=== PATIENT | male | born 1960 | race Caucasian/White ===

== ENCOUNTER → 2016-10-09 | Outpatient (CLI) | payer BC ==
--- NOTE | 2016-10-09 16:26 | XR ---
EXAMINATION TYPE: XR lumbosacral spine min 4V DATE OF EXAM: 10/09/2016 COMPARISON: NONE HISTORY: 56-year-old male severe low back pain with sciatica towards the right TECHNIQUE: 5 views FINDINGS: Atherosclerotic calcifications throughout the abdominal aorta and iliac arteries. There may be mild a neurysm of the abdominal aorta at 3.1 cm. Moderate to advanced disc/endplate degenerative change throughout the lumbar spine with a levoconvex scoliosis, altered level endplate spondylosis and disc vacuum, and hypertrophic facet arthropathy. Ov erall alignment is maintained. There is mild anterior wedging of T12 vertebral body of indeterminate age. No pars interarticularis defect seen. IMPRESSION: 1. Degenerated levoconvex scoliosis of the lumbar spine with moderate to advanced disc/endplate degen erative change and hypertrophic facet arthropathy throughout. 2. Mild anterior wedging of T12 compatible with a mild compression injury of indeterminate age. Clini natalia correlate. 3. Calcified abdominal aorta with possible mild AAA.
== END | disposition home or self-care (01) ==
LOC: RADXRYALE 16:02
PROVIDERS: ATTEND Physician Assistant Medical
DX: M47.816 Spondylosis without myelopathy or radiculopathy, lumbar region (principal); M48.54XA Collapsed vertebra, not elsewhere classified, thoracic region, initial encounter for fracture; M12.88 Other specific arthropathies, not elsewhere classified, other specified site; M41.86 Other forms of scoliosis, lumbar region
CPT/HCPCS: 72110

== ENCOUNTER 2016-10-28 06:55 | Emergency (ER) | payer BC ==
[2016-10-28] MEDS ORDERED: KETOROLAC 60 MG/2 ML VIAL IM STA (07:33)
[2016-10-28] MEDS ORDERED: HYDROcodone/APAP 5-325MG 1 EACH TAB PO STA (07:33)
[2016-10-28] MEDS ORDERED: DIAZEPAM 5 MG TAB PO STA (07:33)
--- NOTE | 2016-10-28 07:33 | ED ---
General Adult HPI - General Chief complaint: Neck Pain/Injury Stated complaint: Neck Pain Time Seen by Provider: 10/28/16 07:21 Source: patient, family, RN notes reviewed, old records reviewed Mode of arrival: ambulatory Limitations: no limitations - History of Present Illness Initial comments: This is a 56-year-old male to the ER for evaluation. This patient presents for evaluation regarding neck pain, severe neck pain. We'll go with the pain yesterday no trauma no injuries. No fevers, decreased range of motion. Patient does have history of back pain and back spasms chronic back pain. Muscle relaxers this morning with mild help - Related Data Home Medications Medication Instructions Recorded Confirmed Albuterol Inhaler [Ventolin 1 - 2 puff INHALATION RT-Q6H PRN 02/24/15 10/28/16 Inhaler] Cholecalciferol [Vitamin D3] 2,000 unit PO DAILY@1200 02/24/15 10/28/16 Fluticasone/Salmeterol [Advair 1 puff INHALATION RT-BID PRN 02/24/15 10/28/16 250-50 Diskus] Meloxicam 15 mg PO DAILY 02/24/15 10/28/16 Niacin [Niacin ER] 500 mg PO DAILY 02/24/15 10/28/16 Simvastatin [Zocor] 20 mg PO HS 02/24/15 10/28/16 amLODIPine [Norvasc] 10 mg PO DAILY 02/24/15 10/28/16 Aspirin 81 mg PO DAILY 10/21/16 10/28/16 Clopidogrel [Plavix] 75 mg PO DAILY 10/21/16 10/28/16 Cyclobenzaprine [Flexeril] 10 mg PO HS 10/21/16 10/28/16 traMADol HCL [Ultram] 50 mg PO TID PRN 10/21/16 10/28/16 Allergies Allergy/AdvReac Type Severity Reaction Status Date / Time No Known Allergies Allergy Verified 10/28/16 07:00 Review of Systems ROS Statement: Those systems with pertinent positive or pertinent negative responses have been documented in the HPI. ROS Other: All systems not noted in ROS Statement are negative. Past Medical History Past Medical History: Hyperlipidemia, Hypertension, Osteoarthritis (OA) Additional Past Medical History / Comment(s): hx. kidney stones, INGUINAL HERNIA History of Any Multi-Drug Resistant Organisms: None Reported Past Surgical History: Orthopedic Surgery Additional Past Surgical History / Comment(s): LT carotid endarterectomy, hydrocele repaired, LT shoulder surg., foot surg. REPAIR LT CLAVICLE FX Past Anesthesia/Blood Transfusion Reactions: No Reported Reaction Past Psychological History: No Psychological Hx Reported Smoking Status: Former smoker - Past Family History Mother Family Medical History: Cancer General Exam Limitations: no limitations General appearance: alert, in no apparent distress Head exam: Present: atraumatic, normocephalic, normal inspection Eye exam: Present: normal appearance, PERRL, EOMI. Absent: scleral icterus, conjunctival injection, periorbital swelling ENT exam: Present: normal exam, mucous membranes moist Neck exam: Present: normal inspection. Absent: tenderness, meningismus, lymphadenopathy Respiratory exam: Present: normal lung sounds bilaterally. Absent: respiratory distress, wheezes, rales, rhonchi, stridor Cardiovascular Exam: Present: regular rate, normal rhythm, normal heart sounds. Absent: systolic murmur, diastolic murmur, rubs, gallop, clicks GI/Abdominal exam: Present: soft, normal bowel sounds. Absent: distended, tenderness, guarding, rebound, rigid Extremities exam: Present: normal inspection, full ROM, normal capillary refill. Absent: tenderness, pedal edema, joint swelling, calf tenderness Back exam: Present: normal inspection Neurological exam: Present: alert, oriented X3, CN II-XII intact Psychiatric exam: Present: normal affect, normal mood Skin exam: Present: warm, dry, intact, normal color. Absent: rash Course Vital Signs 10/28/16 06:58 Temperature 97 F L Pulse Rate 61 Respiratory 18 Rate Blood Pressure 177/82 O2 Sat by Pulse 99 Oximetry - Reevaluation(s) Reevaluation #1: 10/28/16 07:38 Symptoms are much improved Medical Decision Making - Medical Decision Making Present [facility] ER for evaluation, neck pain, decreased range of motion. Patient's symptoms are improved, we'll discharge him Disposition Clinical Impression: Strain of neck muscle, Torticollis Disposition: HOME SELF-CARE Condition: Good Instructions: Cervical Sprain (ED) Referrals: Mauricio Dangelo DO [Primary Care Provider] - 1-2 days
[2016-10-28 08:01] VITALS: BP 157/86; PULSE 64; RESP 17; TEMP 97
== END 2016-10-28 08:01 | disposition home or self-care (01) ==
LOC: EC 06:55
DX: S16.1XXA Strain of muscle, fascia and tendon at neck level, initial encounter (principal); M43.6 Torticollis; E78.5 Hyperlipidemia, unspecified; I10 Essential (primary) hypertension; M19.90 Unspecified osteoarthritis, unspecified site; Z87.891 Personal history of nicotine dependence; Z79.01 Long term (current) use of anticoagulants; Z79.1 Long term (current) use of non-steroidal anti-inflammatories (NSAID); Z79.82 Long term (current) use of aspirin; Z79.899 Other long term (current) drug therapy; X58.XXXA Exposure to other specified factors, initial encounter
CPT/HCPCS: 99284; 96372; J1885

== ENCOUNTER 2016-10-28 11:43 | Day surgery (SDC) | payer BC ==
[2016-10-21 11:58] VITALS: BMI 25.8
[~2016-10-28 11:43] MED LIST: DEXAMETHASONE SOD PHOSPHATE 10 MG/ML 1 ML VIAL IV ONE; HYDROmorphone 1 MG/ML 1 ML SYRINGE IVP PRN; LACTATED RINGERS 1,000 ML IV SCH; LIDOCAINE 1% 20 ML VIAL (10MG/ML) FOR IV START INTRADERMA PRN; ONDANSETRON 4 MG/2 ML VIAL IVP ONE; SCOPOLAMINE 1.5MG/72HR PATCH TRANSDERM ONE; ceFAZolin 2 GM in SODIUM CHLORIDE 0.9% 100 ML IVPB ONE
[2016-10-28] MEDS ORDERED: LACTATED RINGERS 1,000 ML IV ONE (12:37)
[2016-10-28] MEDS ORDERED: HEPARIN SODIUM,PORCINE 5,000 UNIT/ML 1 ML VIAL SQ ONE (13:55)
[2016-10-28] MEDS ORDERED: ROCURONIUM BROMIDE 10 MG/ML 10 ML VIAL IV ONE (14:31)
[2016-10-28] MEDS ORDERED: LIDOCAINE 1% INJ 10MG/ML (20 ML MDV) ONE (14:31)
[2016-10-28] MEDS ORDERED: MIDAZOLAM 2 MG/2 ML VIAL ONE (14:31)
[2016-10-28] MEDS ORDERED: fentaNYL (PF) 50 MCG/ML 2 ML AMP ONE (14:31)
[2016-10-28] MEDS ORDERED: ePHEDrine SULFATE/0.9% NACL/PF 50 MG/5 ML SYRINGE IV ONE (14:31)
[2016-10-28] MEDS ORDERED: GLYCOPYRROLATE 0.2 MG/ML 2 ML VIAL ONE (14:31)
[2016-10-28] MEDS ORDERED: NEOSTIGMINE 1 MG/ML 10 ML VIAL ONE (14:31)
[2016-10-28] MEDS ORDERED: PROPOFOL 10 MG/ML 20 ML VIAL IV ONE (14:31)
[2016-10-28] MEDS ORDERED: SUCCINYLCHOLINE CHLORIDE 100 MG/5 ML SYR IV ONE (14:31)
[2016-10-28] MEDS ORDERED: BUPIVACAINE (PF) 0.25% 30 ML VIAL SQ ONE (15:11)
[2016-10-28 18:09] VITALS: TEMP 97.5
[2016-10-28] MEDS ORDERED: HYDROmorphone 1 MG/ML 1 ML SYRINGE IVP ONE ×2 (18:14→18:19)
[2016-10-28] MEDS ORDERED: LABETALOL 5 MG/ML VIAL MDV IVP ONE (18:36)
[2016-10-28] MEDS ORDERED: NALOXONE 0.4 MG/ML 1 ML VIAL IV PRN (18:40)
[2016-10-28] MEDS ORDERED: HYDROcodone/APAP 5-325MG 1 EACH TAB PO PRN (18:40)
--- NOTE | 2016-10-28 18:44 | P.OP ---
Date of Procedure: 10/28/16 Preoperative Diagnosis: Postoperative Diagnosis: Procedure(s) Performed: PREOPERATIVE DIAGNOSIS: Left inguinal hernia POSTOPERATIVE DIAGNOSIS: Same PROCEDURE: Laparoscopic repair left indirect inguinal hernia with the da Nixon robot assistance SURGEON: Veronica EBL: Minimal ANESTHESIA: General COMPLICATIONS: None OPERATIVE PROCEDURE: Patient was placed in the operating table in the supine position. The patient was then placed in lithotomy. The abdomen was prepped and draped in usual sterile fashion. A small curvilinear supraumbilical incision was made. The fascia was retracted anteriorly with [place] forceps. The Veress needle was inserted. The saline d rop test was normal. Insufflation took place to 15 mmHg. A 12 mm trocar was then inserted. 2 additional 8 mm trochars were placed in the right upper quadrant and left upper quadrant under visualization. The robotic arms were then brought in and docked into place. The fenestrated bipolar was used in the left arm and the laparoscopic bakari was utilized in the right arm. A 30 12 mm scope was used in the up position. The peritoneal cavity was inspected. No visible riding or hernia was seen. An indirect moderate to large sized left inguinal hernia was noted. There was appreciation of chronic inflammation along the medial border of the peritoneum at the indirect hernia sac. Following that careful dissection of the preperitoneal space took place. This took place using both electrocautery and sharp dissection and primarily blunt dissection. Visualization of the pubic tubercle and Orestes's ligament took place medially. Full dissection took place laterally as well. The patient's hernia sac was able to be reduced back into the peritoneal cavity. A large lipoma of the cord was also removed and eventually excised using a specimen bag. The dissection along the medial aspect of the indirect hernia sac is quite tedious because of the chronic inflammatory changes present. Once we had adequate space the 15 x 10 progrip mesh was advanced into the preperitoneal space and flattened out appropriately to cover all potential hernia sites. No sutures were used. The peritoneal defect was then closed using a locking 2-0 VLok suture. A single small defect in the peritoneum was covered using the large indirect hernia sac that was sutured superiorly and anteriorly. The pneumoperitoneum was then evacuated. The fascia at the 12 mm site was closed using a [id number] 0 Vicryl stitch. The skin of all 3 sites was closed using a 4-0 Monocryl stitch. Steri-Strips and sterile dressings were applied. DISPOSITION: Stable to recovery room Implants: Indications for Procedure: Operative Findings: Description of Procedure:
[2016-10-28 18:45] VITALS: RESP 16
[2016-10-28] MEDS ORDERED: hydrALAZINE HCL 20 MG/ML 1 ML VIAL IVP ONE (18:49)
[2016-10-28] MEDS ORDERED: HYDROcodone/APAP 5-325MG 1 EACH TAB PO ONE (19:35)
[2016-10-28 20:33] VITALS: BP 151/92; PULSE 69
== END 2016-10-28 20:45 | disposition home or self-care (01) ==
LOC: OR 11:43
PROVIDERS: ATTEND Surgery
DX: K40.90 Unilateral inguinal hernia, without obstruction or gangrene, not specified as recurrent (principal); Z79.82 Long term (current) use of aspirin; Z79.899 Other long term (current) drug therapy; Z79.51 Long term (current) use of inhaled steroids
CPT/HCPCS: 49650; S2900; 88302

== ENCOUNTER → 2017-02-27 | Outpatient (CLI) | payer BC ==
--- NOTE | 2017-02-27 15:30 | XR ---
EXAMINATION TYPE: XR facial bones limited DATE OF EXAM: 02/27/2017 HISTORY: Pre-MRI: TECHNIQUE: Three views of the facial bones are submitted. FINDINGS: No evidence for radiopaque foreign body. The patient is cleared for MRI IMPRESSION: The patient is cleared for MRI.
--- NOTE | 2017-02-27 22:48 | MR ---
EXAMINATION TYPE: MR lumbar spine wo con DATE OF EXAM: 02/27/2017 COMPARISON: Lumbar spine x-ray October 09, 2016 HISTORY: LUMBAGO WITH SCIATICA RT SIDE TECHNIQUE: Multiplanar, multisequence imaging of the lumbar spine is performed without IV contrast. FINDINGS: There is redemonstration of levoconvex scoliosis. Sagittal images of the lumbar spine show vertebral body heights to appear satisfactory. There is multilevel disc desiccation with multilevel m oderate disc space narrowing. Multilevel posterior disc herniations are seen on sagittal images. The conus medullaris is normal in position and signal ending at mid L1 level. There is heterogeneous mul tilevel endplate changes. There is mild multilevel anterior spurring. Axial images at the T12-L1 level show moderate to severe broad disc bulge mildly effacing anterior th ecal sac and causing severe left-sided neural foraminal narrowing along the inferior margin of left T 12 nerve on sagittal image 10. Right-sided neural foramen is patent. Axial images at L1-L2 level moderate to severe broad disc bulge with left lateral disc protrusion com ponent pacing anterior thecal sac. There is mild right-sided anterior inferior neural foraminal narro wing. There is severe left-sided neural foraminal narrowing encroaching on left L1 nerve seen on sagi ttal images 9 and 10. Axial images at L2-L3 level show moderate severe broad-based disc bulge effacing anterior thecal sac and causing moderate left and mild right-sided neural foraminal narrowing. Axial images at L3-L4 level show moderate posterior broad disc bulge effacing anterior thecal sac and causing moderate left and severe right-sided neural foraminal narrowing. Encroachment of right L3 ne rve is still present on sagittal image 14. Axial images at L4-L5 level show moderate to severe broad disc bulge with right lateral disc protrusi on component. There is [id number] facet degenerative changes bilaterally. There is effacement o f the anterior thecal sac. There is moderate to severe bilateral neural foraminal narrowing with encr oachment along the inferior margin from extraforaminal right L4 nerve felt present. Axial images at L5-S1 level mild left greater than right facet degenerative changes. There is broad-b ased posterior disc protrusion minimally effaces the anterior thecal sac. There is severe left-sided neural foraminal narrowing with encroachment left L5 nerve identified. There is moderate right-sided neural foraminal narrowing with encroachment on the anterior inferior margin of right L5 nerve also s een present on axial image 3 and sagittal image 16. There is partial visualization of a cystic lesion anterior aspect right kidney on axial image 24. IMPRESSION: Scoliosis with multilevel moderate to advanced degenerative changes and several levels of neural encroachment as detailed above somewhat pronounced for patient's age.
== END | disposition home or self-care (01) ==
LOC: RADMRIMAIN 15:05
PROVIDERS: ATTEND Family Medicine
DX: M47.817 Spondylosis without myelopathy or radiculopathy, lumbosacral region (principal); M41.87 Other forms of scoliosis, lumbosacral region
CPT/HCPCS: 70140; 72148

== ENCOUNTER → 2019-12-16 | Outpatient (CLI) | payer OTHER ==
[2019-12-16 10:48] LABS: Basophils # (A) 0.1 k/uL (0-0.2); Basophils % (A) 1 %; Eosinophils # (A) 0.3 k/uL (0-0.7); Eosinophils % (A) 4 %; HCT 46.1 % (39.0-53.0); Lymphocytes % (A) 26 %; MCH 30.2 pg (25.0-35.0); MCHC 32.6 g/dL (31.0-37.0); MCV 92.9 fL (80.0-100.0); Mean Platelet Volume 8.2; Monocytes # (A) 0.8 k/uL (0-1.0); Monocytes % (A) 11 %; Neutrophils # (A) 4.1 k/uL (1.3-7.7); Neutrophils % (A) 54 %; Platelet Count 244 k/uL (150-450); RBC 4.96 m/uL (4.30-5.90); RDW 13.5 % (11.5-15.5); WBC 7.6 k/uL (3.8-10.6)
== END | disposition home or self-care (01) ==
LOC: LABWHC1 10:14
PROVIDERS: ATTEND Surgery
DX: K40.90 Unilateral inguinal hernia, without obstruction or gangrene, not specified as recurrent (principal)
CPT/HCPCS: 36415; 85025

== ENCOUNTER 2020-02-07 07:59 | Day surgery (SDC) | payer BC, OTHER ==
[2020-02-01 14:23] VITALS: BMI 27.2
--- NOTE | 2020-02-07 07:51 | P.GSHP ---
History of Present Illness H&P Date: 02/07/20 Chief Complaint: right inguinal hernia A today for elective repair right inguinal hernia. Patient had previous robotic repair left inguinal hernia 3 years ago. No hernia seen on the right at that time. Has had increasing bulge with mild pain. Hernia is larger than his left hernia was previously. Past Medical History Past Medical History: COPD, Hyperlipidemia, Hypertension, Osteoarthritis (OA) Additional Past Medical History / Comment(s): Hx kidney stones. History of Any Multi-Drug Resistant Organisms: None Reported Past Surgical History: Hernia Repair, Orthopedic Surgery Additional Past Surgical History / Comment(s): Left carotid endarterectomy, hydrocele repaired, left shoulder surgery, foot surgery, repair of left clavicle fracture. Past Anesthesia/Blood Transfusion Reactions: No Reported Reaction Past Psychological History: No Psychological Hx Reported Smoking Status: Former smoker Past Alcohol Use History: None Reported Additional Past Alcohol Use History / Comment(s): Quit smoking in 2012, smoked for 20 yrs. Past Drug Use History: Marijuana Additional Drug Use History / Comment(s): Marijuana use occasionally. Instructed no use 24 hrs prior to procedure. - Past Family History Mother Family Medical History: Cancer Medications and Allergies Home Medications Medication Instructions Recorded Confirmed Type Albuterol Inhaler (Mhu) [Ventolin 2 puff INHALATION Q4H PRN 02/24/15 02/01/20 History Inhaler] Cholecalciferol [Vitamin D3] 2,000 unit PO DAILY 02/24/15 02/01/20 History Fluticasone/Salmeterol [Advair 1 puff INHALATION RT-BID PRN 02/24/15 02/01/20 History 250-50 Diskus] Meloxicam 15 mg PO DAILY 02/24/15 02/01/20 History Niacin [Niacin ER] 500 mg PO DAILY 02/24/15 02/01/20 History amLODIPine [Norvasc] 10 mg PO QAM 02/24/15 02/01/20 History Aspirin 81 mg PO DAILY 10/21/16 02/01/20 History Clopidogrel [Plavix] 75 mg PO DAILY 10/21/16 02/01/20 History traMADol HCL [Ultram] 50 mg PO TID 10/21/16 02/01/20 History Atorvastatin [Lipitor] 20 mg PO DAILY 02/01/20 02/01/20 History Baclofen [Lioresal] 20 mg PO HS 02/01/20 02/01/20 History HYDROcodone/APAP 10-325MG [[place] 1 tab PO HS 02/01/20 02/01/20 History 10-325] Allergies Allergy/AdvReac Type Severity Reaction Status Date / Time No Known Allergies Allergy Verified 02/01/20 14:02 Surgical - Exam Physical exam: General: Well-developed, well-nourished HEENT: Normocephalic, sclerae nonicteric Abdomen: Nontender, nondistended, reducible right inguinal hernia Extremities: No edema Neuro: Alert and oriented Assessment and Plan (1) Right inguinal hernia Narrative/Plan: Will proceed with operative repair right inguinal hernia at this time Risks of bleeding, infection, recurrence, bladder and bowel injury, numbness, nerve injury, conversion to an open procedure were discussed with the patient. The patient understands and wishes to proceed. Status: Acute Code(s): K40.90 - UNIL INGUINAL HERNIA, W/O OBST OR GANGR, NOT SPCF RECUR SNOMED Code(s): 172339001
[~2020-02-07 07:59] MED LIST changes: +ACETAMINOPHEN TAB 500 MG TAB PO PRN; -DEXAMETHASONE SOD PHOSPHATE 10 MG/ML 1 ML VIAL IV ONE; +DEXAMETHASONE SOD PHOSPHATE 4 MG/ML 1 ML VIAL IV ONE; +HEPARIN SODIUM,PORCINE 5,000 UNIT/ML 1 ML VIAL SQ PRN; +HYDROmorphone 0.5 MG/0.5 ML SYRINGE IVP PRN; -HYDROmorphone 1 MG/ML 1 ML SYRINGE IVP PRN; -LIDOCAINE 1% 20 ML VIAL (10MG/ML) FOR IV START INTRADERMA PRN; -SCOPOLAMINE 1.5MG/72HR PATCH TRANSDERM ONE; -ceFAZolin 2 GM in SODIUM CHLORIDE 0.9% 100 ML IVPB ONE
[2020-02-07] MEDS ORDERED: LIDOCAINE 1% (10MG/ML) FOR IV START INTRADERMA ONE (08:08)
[2020-02-07] MEDS ORDERED: HYDROmorphone (PF) 1 MG/ML ONE (09:29)
[2020-02-07] MEDS ORDERED: fentaNYL (PF) 50 MCG/ML 2 ML AMP ONE (09:29)
[2020-02-07] MEDS ORDERED: KETAMINE 10 MG/ML 20 ML VIAL ONE (09:29)
[2020-02-07] MEDS ORDERED: NEOSTIGMINE 1 MG/ML 10 ML VIAL ONE (09:29)
[2020-02-07] MEDS ORDERED: ROCURONIUM 10 MG/ML (10 ML VIAL) IV ONE (09:29)
[2020-02-07] MEDS ORDERED: PROPOFOL 10 MG/ML 20 ML VIAL IV ONE (09:29)
[2020-02-07] MEDS ORDERED: GLYCOPYRROLATE 0.2 MG/ML 2 ML VIAL ONE (09:29)
[2020-02-07] MEDS ORDERED: LIDOCAINE 1% INJ 10MG/ML (20 ML MDV) ONE (09:29)
[2020-02-07] MEDS ORDERED: SUCCINYLCHOLINE CHLORIDE 100 MG/5 ML SYR IV ONE (09:29)
[2020-02-07] MEDS ORDERED: BUPIVACAINE (PF) 0.25% 30 ML VIAL SQ ONE (09:57)
[2020-02-07] MEDS ORDERED: LACTATED RINGERS 1,000 ML IV ONE ×2 (10:18→11:44)
[2020-02-07] MEDS ORDERED: TAMSULOSIN 0.4 MG CAP.ER.24H PO STA (11:08)
--- NOTE | 2020-02-07 11:12 | P.OP ---
Date of Procedure: 02/07/20 Procedure(s) Performed: PREOPERATIVE DIAGNOSIS: Right inguinal hernia POSTOPERATIVE DIAGNOSIS: Same PROCEDURE: Laparoscopic repair arch right direct inguinal hernia with the da Nixon robot assistance with mesh SURGEON: Veronica EBL: Minimal ANESTHESIA: General COMPLICATIONS: None OPERATIVE PROCEDURE: Patient was placed in the operating table in the supine position. The patient was placed under general anesthesia. The abdomen was prepped and draped in usual sterile fashion. A small curvilinear supraumbilical incision was made. The fascia was retracted anteriorly with [place] forceps. The Veress needle was inserted. The saline drop test was normal. Insufflation took place to 15 mmHg. An 8 mm trocar was placed into the peritoneal cavity. 2 additional 8 mm trochars were placed in the right upper quadrant and left upper quadrant under visualization. The robotic arms were then brought in and docked into place. The fenestrated bipolar was used in the left arm and the laparoscopic bakari was utilized in the right arm. A 30 8 mm scope was used in the up position. The peritoneal cavity was inspected. There were some adhesions to the previous peritoneal closure on the left-hand side. No recurrent hernia on the left was seen. A large direct hernia containing a loop of small bowel was identified in the right groin. The peritoneum was incised in a horizontal fashion cephalad to the internal inguinal ring. Following that careful dissection of the preperitoneal space took place. This took place using both electrocautery, sharp dissection but primarily blunt dissection. Visualization of the pubic tubercle and Orestes's ligament took place medially. Full dissection took place laterally as well. The hernia sac was fully dissected. Once we had adequate space the 15 x 10 progrip mesh was advanced into the preperitoneal space and flattened out appropriately to cover all potential hernia sites. No sutures were used. The peritoneal defect was then closed using a locking 2-0 VLok suture. The large hernia sac was incorporated into our peritoneal closure to prevent recurrence. The pneumoperitoneum was then evacuated. The skin of all 3 sites was closed using a 4-0 Monocryl stitch. Skin glue was then applied. DISPOSITION: Stable to recovery room
[2020-02-07 11:27] VITALS: TEMP 99.5
[2020-02-07 11:39] VITALS: RESP 16
[2020-02-07] MEDS ORDERED: IBUPROFEN 600 MG TAB PO SCH (12:00)
[2020-02-07 12:53] VITALS: BP 134/86; PULSE 89
[2020-02-07] MEDS ORDERED: ACETAMINOPHEN TAB 325 MG TAB PO SCH (15:00)
== END 2020-02-07 13:15 | disposition home or self-care (01) ==
LOC: OR 07:59
PROVIDERS: ATTEND Surgery
DX: K40.90 Unilateral inguinal hernia, without obstruction or gangrene, not specified as recurrent (principal); I10 Essential (primary) hypertension; E78.00 Pure hypercholesterolemia, unspecified; M19.90 Unspecified osteoarthritis, unspecified site; I65.29 Occlusion and stenosis of unspecified carotid artery; J43.9 Emphysema, unspecified; Z98.890 Other specified postprocedural states; Z87.891 Personal history of nicotine dependence; Z79.1 Long term (current) use of non-steroidal anti-inflammatories (NSAID); Z79.02 Long term (current) use of antithrombotics/antiplatelets; Z79.82 Long term (current) use of aspirin; Z79.891 Long term (current) use of opiate analgesic; Z79.51 Long term (current) use of inhaled steroids; Z79.899 Other long term (current) drug therapy; Z87.442 Personal history of urinary calculi; E78.5 Hyperlipidemia, unspecified
CPT/HCPCS: 49650; S2900

== ENCOUNTER → 2024-09-22 | Outpatient (CLI) | payer MEDICARE, OTHER ==
--- NOTE | 2024-09-22 12:53 | MR ---
EXAMINATION TYPE: MR lumbar spine wo con DATE OF EXAM: 09/22/2024 11:44 AM COMPARISON: MRI lumbar spine 02/27/2017. CLINICAL INDICATION: Male, 64 years old with history of M54.16 RADICULOPATHY, LUMBAR REGION; PHH, Low back pain into rt calf TECHNIQUE: Multi planar, multi sequence imaging was performed utilizing: T1-weighted, T2-weighted, a nd turbo inversion recovery imaging of the lumbar spine. IV Contrast: mL (None, if empty) FINDINGS: Alignment: Scoliosis changes spine levoscoliosis apex at L1-L4. Grade 1 anterolisthesis of L4 and L5. Cord: The conus medullaris and the distal spinal cord appear unremarkable with regards to their signa l intensity and morphology. Bones/Discs: Levoscoliosis with bony edema at the adjoining endplates of multiple levels in the area of scoliosis. Severe degeneration changes throughout the spine with osteophyte formation and facet pa int arthropathy. Scattered disc desiccation. Wedge compression deformities of the lower thoracic spin e and are chronic. T12-L1: Disc bulge and facet joint arthropathy without significant spinal canal stenosis and severe l eft moderate to severe right neural foraminal stenosis. L1-L2: Disc bulge and facet joint arthropathy without significant spinal canal stenosis and severe le ft and moderate severe right neural foraminal stenosis. L2-L3: Disc bulge and facet joint arthropathy with mild to moderate spinal canal stenosis and severe bilateral neural foraminal stenosis. L3-L4: Disc bulge and facet joint arthropathy without significant spinal canal stenosis and severe bi lateral neural foraminal stenosis. L4-L5: Disc uncovering from grade 1 anterolisthesis and facet joint arthropathy with mild spinal daryl l stenosis and severe bilateral neural foraminal stenosis. L5-S1: The disc has a rounded posterior morphology without significant spinal canal stenosis. Facet j oint arthropathy with moderate right and severe left neural foraminal stenosis. No significant spinal canal or neural foraminal stenosis in the remainder of the visualized levels. Other findings: None. IMPRESSION: Overall progression of degeneration in scoliosis compared to prior 1. No definitive evidence of disc herniation or significant spinal canal stenosis. 2. Severe degeneration with multilevel moderate and moderate to severe neural foraminal stenosis as described above worse from L1 through L5 3. Grade 1 anterolisthesis of L4 on L5. 4. Levoscoliosis apex L3. 5. Wedge compression deformities of the lower thoracic spine and are chronic. [facility], , 09/22/2024 12:51 PM
== END | disposition home or self-care (01) ==
LOC: RADMRIMAIN 09-07 18:01
PROVIDERS: ATTEND Family Medicine
DX: M48.061 Spinal stenosis, lumbar region without neurogenic claudication (principal); M48.54XA Collapsed vertebra, not elsewhere classified, thoracic region, initial encounter for fracture; M43.16 Spondylolisthesis, lumbar region; M41.86 Other forms of scoliosis, lumbar region; M47.26 Other spondylosis with radiculopathy, lumbar region
CPT/HCPCS: 72148